=== PATIENT | female | born 1965 | race Caucasian/White ===

== ENCOUNTER 2016-11-22 16:48 | Emergency (ER) | payer OTHER ==
--- NOTE | 2016-11-22 18:11 | ED NURSING NOTES ---
Clinical Report - Nurses [facility] [place] [address] 11/22/2016 16:50 Patient: MCKENZIE TEMPLE TRIAGE Triage time 16:52. Acuity: LEVEL 3. Chief Complaint: FALL OFF A HORSE. Alert. --16:58 Chantel Perez R.N. 16:52 11/22/16. BP: 134/74. HR: 121. RR: 30. O2 saturation: 100%. Temp: 97.7 F. Pain level now 08/04. --16:58 Chantel Perez R.N. Weight: 94.8 kg stated. Height/Length: 64 inches Per Patient. BMI: 35.9. --16:52 Chantel Perez R.N. Medications MetFORMIN HCl Oral. --16:57 Chantel Perez R.N. Glipizide Oral. --16:57 Chantel Perez R.N. Invocana. --16:57 Chantel Perez R.N. Allergies Codeine. --16:57 Chantel Perez R.N. Oxycodone. --16:57 Chantel Perez R.N. History Arrived by private vehicle. Historian: patient. Location of injuries: right wrist. This occurred just prior to arrival. ( right wrist with deformity). No loss of consciousness. 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 Trauma activation: Modified Trauma Activation. Pre-hospital notification of patient arrival was not received. PAST MEDICAL HX: Diabetes mellitus. Tetanus status: up-to-date. SOCIAL HX: Smoker- current status unknown (electronic cigarrettes). No alcohol use or drug use. --16:58 Chantel Perez R.N. ( bilat knee scrapes). --16:59 Chantel Perez R.N. PROBLEMS: Contusion. Last Tetanus. --16:58 Chantel Perez R.N. ADDITIONAL SURGERIES: Cholecystectomy. Tonsillectomy. --16:58 Chantel Perez R.N. PHYSICAL ASSESSMENT GENERAL / NEURO / PSYCH: Alert. Oriented X 4. Appears anxious and in distress. RESPIRATORY: Respiratory distress (hyperventillating). SKIN: Skin is warm. --16:59 Chantel Perez R.N. NURSING PROGRESS NOTES Call light placed in reach. --16:59 Chantel Perez R.N. 17:12 11/22/2016 Dilaudid (HYDROmorphone HCl PF) IM 2 mg given. Given in the left anterior lateral thigh. Allergies verified, confirmed 5 rights and sedative warning given to the patient and patient's coal dumping equipment operator. --17:12 Ramsey Temple R.N. 17:12 11/22/2016 Phenergan (Promethazine HCl) IM 25 mg given. Given in the right anterior lateral thigh. Allergies verified, confirmed 5 rights and sedative warning given to the patient and patient's coal dumping equipment operator. --17:12 Ramsey Temple R.N. 17:12. Patient transported to radiology. --17:17 Ramsey Temple R.N. Point of care testing: performed by tech. Glucose: 150. [facility] DISPOSITION / DISCHARGE 18:29 11/22/16. Departure time: 1825. ( MD aware of discharge vitals). No learning barriers present. Discharge instructions provided and reviewed with the patient and family. Reviewed medication(s) side effects, precautions, dosing and course information. Prescription(s) given to the patient. Patient verbalized understanding. Written instructions provided in Luxembourgish. The patient was discharged by the physician. She was discharged home and accompanied by coal dumping equipment operator. She left the Emergency Department ambulatory and via private vehicle. [employer] driving. --18:29 Ramsey Temple R.N. 18:29 11/22/16. BP: 130/66. HR: 110. RR: 14. O2 saturation: 95%. Temp: 98.1 F. Pain level now 10. --18:29 Ramsey Temple R.N. Locked/Released at 11/22/2016 18:58 by Ramsey Temple R.N.
--- NOTE | 2016-11-22 18:11 | ED CLINICAL REPORT ---
Clinical Report - Physicians/Mid Levels [facility] [address] [place] [address] 11/22/2016 16:50 Patient: MCKENZIE SANCHEZ Time Seen: 16:52. Arrived- By private vehicle. Historian- patient. HISTORY OF PRESENT ILLNESS Chief Complaint: FALL and INJURY TO RIGHT UPPER EXTREMITY. Location of injuries- right shoulder, right arm, right elbow, right forearm and right wrist. The injury occurred just prior to arrival. Fell. Occurred at home. The patient complains of moderate pain. No blow to the head, neck pain, loss of consciousness or seizure. Not dazed. REVIEW OF SYSTEMS No dizziness, hearing loss, chest pain, difficulty breathing or weakness. No headache, nausea, abdominal pain, laceration or fever. No vomiting or urinary problems. She has no pain on weight bearing. All systems otherwise negative, except as recorded above. PAST HISTORY Type II diabetes mellitus treated with oral med. Prior fall from horse with hip contusion (seen at [facility]). Medications: Invocana. Glipizide Oral. MetFORMIN HCl Oral. Allergies: Codeine. Oxycodone. SOCIAL HISTORY Smoker- current status unknown. No alcohol use or drug use. ADDITIONAL NOTES The nursing notes have been reviewed. PHYSICAL EXAM Vital Signs: 11/22/2016 16:52 BP: 134/74. HR: 121. RR: 30. O2 saturation: 100%. Temp: 97.7 F. Appearance: Alert. Oriented X3. Anxious. Patient in moderate distress. Head: Head non-tender. No swelling of head. No Haider's sign or raccoon eyes. Eyes: Pupils equal, round and reactive to light. EOM intact. ENT: No dental injury. Pharynx normal. Neck: No pain with movement of head/neck. Painless ROM. Non-tender. Non-tender. No vertebral tenderness. CVS: Tachycardia. Heart sounds normal. Pulses normal. Respiratory: Breath sounds normal. Chest nontender. Abdomen: No visible injury. Soft and nontender. No mass. Back: No tenderness. ROM normal. No vertebral point tenderness. Skin: Skin intact. Skin warm and dry. Normal skin color. Normal skin turgor. Extremities: Right shoulder: mild tenderness located in the anterior, posterior and medial aspect of the shoulder, AC joint and distal clavicle. Limited ROM due to pain. Neurovascular intact distally. No erythema, swelling, laceration, abrasion or ecchymosis. No puncture wound, foreign body or deformity. Right elbow: moderate tenderness. Limited ROM secondary to pain. Neurovascular intact distally. No erythema, swelling, abrasion, ecchymosis or puncture wound. No deformity. Right wrist: moderate tenderness and swelling located in the dorsal, volar and radial aspect of the wrist. Limited ROM secondary to pain. Neurovascular intact distally. Right hand: moderate tenderness and mild swelling localized to the proximal, dorsal and palmar aspect of the hand. Neurovascular intact distally. No abrasion, ecchymosis, foreign body or deformity. Pelvis stable. Left knee: mild tenderness. Neurovascular intact distally. No erythema, swelling, laceration or ecchymosis. No limitation in ROM. Neuro: Marissa Coma Scale: 15- eyes open spontaneously (4); best verbal response- oriented x 3 (5); best motor response- obeys commands (6). Oriented X 3. No motor deficit. No sensory deficit. LABS, X-RAYS, AND EKG Rt Shoulder X-ray: No fracture. Normal alignment. Technique: good. The X-rays were interpreted contemporaneously by me. Rt Elbow X-ray: No fracture. Normal alignment. Soft tissues normal. No air in the soft tissue or foreign body. Anterior fat pad visible. Posterior fat pad not visualized. Views: AP, lateral and oblique. Technique: good. The X-rays were interpreted contemporaneously by me. Rt Hand X-ray: Fracture of the distal radius. No open, comminuted, intraarticular or displaced right radius fracture. Views: AP, lateral and oblique. Technique: good. The X-rays were interpreted contemporaneously by me. Pulse Oximetry: 11/22/2016 16:52 O2 saturation: 100%. (FIO2 - room air). Interpretation: normal. PROGRESS AND PROCEDURES Splint Application: Fiberglass short arm splint and sugar tong splint applied to right wrist and forearm. Splint applied by tech with direct supervision by the ED physician. Reassessed extremity following splint application. Neurovascular intact. Course of Care: Dilaudid 2 mg with Phenergan 25 mg IM given. Pt given pain meds prior to x-ray. No neck or back pain or tenderness. No chest or abdominal pain or tenderness Patient is stable. Physical exam findings are improved. Symptoms much better. Patient/family counseled. Old ED records reviewed. Disposition: Discharged. Condition: stable and improved. CLINICAL IMPRESSION Contusion to the right shoulder and right elbow. Closed nondisplaced transverse fracture of the distal right radius Fall in sports (from horse). INSTRUCTIONS Apply ice. Wear sling. Elevate affected areas above chest level. Wear fiberglass splint until released. Warnings: SEDATIVE MEDICATION: You were given sedative medication during your visit. Do not drive or operate dangerous machinery. CONTROLLED SUBSTANCE WARNINGS. GENERAL WARNINGS: Return or contact your physician immediately if your condition worsens or changes unexpectedly, if not improving as expected, or if other problems arise. Your Current Medications: CONTINUE TAKING THE FOLLOWING MEDICATIONS: Glipizide Oral. Invocana*. MetFORMIN HCl Oral. Prescription Medications: Zofran (orally disintegrating tablets) 4 mg: take 1-2 orally every 8 hours as needed for nausea and vomiting. Dispense ten (10). No refill. Substitution is permissible. Tramadol 50 mg tablets: take 1-2 orally every 6 hours as needed for pain. Dispense twenty (20). No refills. OTC Medications: Acetaminophen (available over the counter): take according to label instructions. Motrin (available over the counter): take according to label instructions. Follow-up: Follow up with your doctor in about three days. Follow up with an orthopedic surgeon- as recommended by your primary care physician- in about three days. (Electronically signed by Danny Fried DO 11/22/2016 22:46) Addenda for LAURA MCKENZIE Bradford VisitID: [id number] Date: 11/22/2016 11/22/2016 19:03 I personally performed the splint and put pt on a sling. (Electronically signed by Vickie López - 11/22/2016 19:03)
--- NOTE | 2016-11-22 18:11 | ED NURSING NOTES ---
Clinical Report - Nurses [facility] [place] [address] 11/22/2016 16:50 Patient: MCKENZIE TEMPLE TRIAGE Triage time 16:52. Acuity: LEVEL 3. Chief Complaint: FALL OFF A HORSE. Alert. --16:58 Chantel Perez R.N. 16:52 11/22/16. BP: 134/74. HR: 121. RR: 30. O2 saturation: 100%. Temp: 97.7 F. Pain level now 08/04. --16:58 Chantel Perez R.N. Weight: 94.8 kg stated. Height/Length: 64 inches Per Patient. BMI: 35.9. --16:52 Chantel Perez R.N. Medications MetFORMIN HCl Oral. --16:57 Chantel Perez R.N. Glipizide Oral. --16:57 Chantel Perez R.N. Invocana. --16:57 Chantel Perez R.N. Allergies Codeine. --16:57 Chantel Perez R.N. Oxycodone. --16:57 Chantel Perez R.N. History Arrived by private vehicle. Historian: patient. Location of injuries: right wrist. This occurred just prior to arrival. ( right wrist with deformity). No loss of consciousness. 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 Trauma activation: Modified Trauma Activation. Pre-hospital notification of patient arrival was not received. PAST MEDICAL HX: Diabetes mellitus. Tetanus status: up-to-date. SOCIAL HX: Smoker- current status unknown (electronic cigarrettes). No alcohol use or drug use. --16:58 Chantel Perez R.N. ( bilat knee scrapes). --16:59 Chantel Perez R.N. PROBLEMS: Contusion. Last Tetanus. --16:58 Chantel Perez R.N. ADDITIONAL SURGERIES: Cholecystectomy. Tonsillectomy. --16:58 Chantel Perez R.N. PHYSICAL ASSESSMENT GENERAL / NEURO / PSYCH: Alert. Oriented X 4. Appears anxious and in distress. RESPIRATORY: Respiratory distress (hyperventillating). SKIN: Skin is warm. --16:59 Chantel Perez R.N. NURSING PROGRESS NOTES Call light placed in reach. --16:59 Chantel Perez R.N. 17:12 11/22/2016 Dilaudid (HYDROmorphone HCl PF) IM 2 mg given. Given in the left anterior lateral thigh. Allergies verified, confirmed 5 rights and sedative warning given to the patient and patient's business services sales agent. --17:12 Ramsey Temple R.N. 17:12 11/22/2016 Phenergan (Promethazine HCl) IM 25 mg given. Given in the right anterior lateral thigh. Allergies verified, confirmed 5 rights and sedative warning given to the patient and patient's business services sales agent. --17:12 Ramsey Temple R.N. 17:12. Patient transported to radiology. --17:17 Ramsey Temple R.N. Point of care testing: performed by tech. Glucose: 150. --17:[facility] DISPOSITION / DISCHARGE 18:29 11/22/16. Departure time: 1825. ( MD aware of discharge vitals). No learning barriers present. Discharge instructions provided and reviewed with the patient and family. Reviewed medication(s) side effects, precautions, dosing and course information. Prescription(s) given to the patient. Patient verbalized understanding. Written instructions provided in German. The patient was discharged by the physician. She was discharged home and accompanied by business services sales agent. She left the Emergency Department ambulatory and via private vehicle. [employer] driving. --18:29 Ramsey Temple R.N. 18:29 11/22/16. BP: 130/66. HR: 110. RR: 14. O2 saturation: 95%. Temp: 98.1 F. Pain level now 10. --18:29 Ramsey Temple R.N. Locked/Released at 11/22/2016 18:58 by Ramsey Temple R.N.
--- NOTE | 2016-11-22 18:11 | ED ORDER SUMMARY ---
..... Patient: MCKENZIE TEMPLE OrderSheet [facility] VisitID: [id number] [address] [place] [address] 51y, F Registration Date/Time: 11/22/2016 ORDER SHEET Weight: 94.8 kg (stated) Allergies: Codeine, Oxycodone GENERAL ORDERS: Wrist 3 or 4V Right Urgent (16:53 11/22/2016 PHutchinson DO) (Ack 16:55 LTapper) (16:57 PHutchinson DO) (Cancelled: Other16:57 utchinson DO) Elbow 3 or 4V Right Urgent (16:56 11/22/2016 PHutchinson DO) (Ack 17:07 LTapper) (17:17 KWilliams R.N.) Shoulder 2V or more Right Urgent (16:56 11/22/2016 PHutchinson DO) (Ack 17:07 LTapper) (17:17 KWilliams R.N.) Hand 3 or 4V Right Urgent (16:57 11/22/2016 PHutchinson DO) (Ack 17:07 LTapper) (17:17 KWilliams R.N.) Splint (UE) (Right) (Sugar Tong) (Short Arm) (17:50 11/22/2016 PHnvchinson DO) (18:26 KWilliams R.N.) Sling - arm (17:50 11/22/2016 PHnvchinson DO) (18:26 KWilliams R.N.) MEDICATION ORDERS: Dilaudid IM 2 mg (HIGH ALERT MEDICATION, NOW) (17:04 11/22/2016 PHutchinson DO) (17:12 KWilliams R.N.) Phenergan IM 25 mg (HIGH ALERT MEDICATION, NOW) (17:05 11/22/2016 PHnvchinson DO) (17:12 KWilliams R.N.) IV FLUIDS: ORDER SHEET NOTES: [Electronically signed by Ramsey Temple R.N. (18:58 11/22/2016)] [Electronically signed by Danny Fried DO (22:46 11/22/2016)] [Electronically locked/signed by Ramsey Temple R.N. (18:58 11/22/2016)Clarissa
--- NOTE | 2016-11-22 18:11 | ED ORDER SUMMARY ---
..... Patient: MCKENZIE TEMPLE OrderSheet [facility] VisitID: [id number] [address] [place] [address] 51y, F Registration Date/Time: 11/22/2016 ORDER SHEET Weight: 94.8 kg (stated) Allergies: Codeine, Oxycodone GENERAL ORDERS: Wrist 3 or 4V Right Urgent (16:53 11/22/2016 PHutchinson DO) (Ack 16:55 LTapper) (16:57 PHutchinson DO) (Cancelled: Other16:57 utchinson DO) Elbow 3 or 4V Right Urgent (16:56 11/22/2016 PHutchinson DO) (Ack 17:07 LTapper) (17:17 KWilliams R.N.) Shoulder 2V or more Right Urgent (16:56 11/22/2016 PHutchinson DO) (Ack 17:07 LTapper) (17:17 KWilliams R.N.) Hand 3 or 4V Right Urgent (16:57 11/22/2016 PHutchinson DO) (Ack 17:07 LTapper) (17:17 KWilliams R.N.) Splint (UE) (Right) (Sugar Tong) (Short Arm) (17:50 11/22/2016 PHnychinson DO) (18:26 KWilliams R.N.) Sling - arm (17:50 11/22/2016 PHnychinson DO) (18:26 KWilliams R.N.) MEDICATION ORDERS: Dilaudid IM 2 mg (HIGH ALERT MEDICATION, NOW) (17:04 11/22/2016 PHutchinson DO) (17:12 KWilliams R.N.) Phenergan IM 25 mg (HIGH ALERT MEDICATION, NOW) (17:05 11/22/2016 PHnychinson DO) (17:12 KWilliams R.N.) IV FLUIDS: ORDER SHEET NOTES: [Electronically signed by Ramsey Temple R.N. (18:58 11/22/2016)] [Electronically signed by Danny Fried DO (22:46 11/22/2016)] [Electronically locked/signed by Ramsey Temple R.N. (18:58 11/22/2016)Clarissa
--- NOTE | 2016-11-22 19:37 | DIAGNOSTIC IMAGING REPORT ---
PROCEDURE: XR SHOULDER 2 OR MORE VW-RIGHT INDICATION: Fell from horse, initial encounter TECHNIQUE: Three views. COMPARISON: None. FINDINGS: Osseous structures, joint spaces and soft tissues are normal. IMPRESSION: 1. Normal right shoulder.
--- NOTE | 2016-11-22 19:38 | DIAGNOSTIC IMAGING REPORT ---
PROCEDURE: XR ELBOW 3 OR 4 VIEWS - RIGHT INDICATION: Fell from horse, initial encounter TECHNIQUE: Four views. COMPARISON: None. FINDINGS: Osseous structures, joint spaces, and soft tissues are normal. No evidence of an effusion. IMPRESSION: 1. Normal right elbow.
--- NOTE | 2016-11-22 19:40 | DIAGNOSTIC IMAGING REPORT ---
PROCEDURE: XR HAND 3 OR 4 VIEWS - RIGHT INDICATION: Fell from horse, initial encounter TECHNIQUE: Four views. COMPARISON: None. FINDINGS: Minimally impacted distal radius fracture with minimal displacement. No other osseous abnormalities. Normal joint spaces and soft tissues. IMPRESSION: 1. Nondisplaced impacted distal radius fracture.
--- NOTE | 2016-11-22 22:46 | ED MED RECONCILIATION SUMMARY ---
Patient: MCKENZIE SANCHEZ Medication Reconciliation Report [facility] VisitID: [id number] [address] [place] [address] 51y, F Registration Date/Time: 11/22/2016 Weight: 94.8 kg Height/Length: 64 in. BMI: 35.9 ALLERGIES: Codeine, Oxycodone The patient's Home Medications are listed below: CONTINUE TAKING THE FOLLOWING MEDICATIONS: Glipizide Oral Invocana MetFORMIN HCl Oral The source(s) of the original Home Medication information: Not obtained. The following Medications were given to the patient in the Emergency Department: Dilaudid [IM] IM 2 mg, administered: 11/22/2016 5:12:00 PM Phenergan [IM] IM 25 mg, administered: 11/22/2016 5:12:00 PM The following Medications were prescribed to the patient: Acetaminophen (available over the counter): take according to label instructions. -- Danny Fried DO Motrin (available over the counter): take according to label instructions. -- Danny Fried DO Zofran (orally disintegrating tablets) 4 mg: take 1-2 orally every 8 hours as needed for nausea and vomiting. Dispense ten (10). No refill. Substitution is permissible. -- Danny Fried DO Tramadol 50 mg tablets: take 1-2 orally every 6 hours as needed for pain. Dispense twenty (20). No refills. -- Danny Fried DO
--- NOTE | 2016-11-22 22:46 | ED MAR SUMMARY ---
..... Medication Administration Record [facility] [address] [place] [address] Patient: MCKENZIE TEMPLE Visit ID: [id number] 51y, F Weight: 94.8 kg Height/Length: 64 in BMI: 35.9 ALLERGIES: Oxycodone, Codeine Given 17:12 11/22/2016 Ramsey Temple R.N. Medication Administered: DILAUDID [IM] (HYDROMORPHONE HCL PF), Dose: 2 mg IM. Medication Ordered: Dilaudid IM 2 mg (HIGH ALERT MEDICATION, NOW). Given 17:12 11/22/2016 Ramsey Temple RCisco Medication Administered: PHENERGAN [IM] (PROMETHAZINE HCL), Dose: 25 mg IM. Medication Ordered: Phenergan IM 25 mg (HIGH ALERT MEDICATION, NOW).
--- NOTE | 2016-11-22 22:46 | ED MED RECONCILIATION SUMMARY ---
Patient: MCKENZIE SANCHEZ Medication Reconciliation Report [facility] VisitID: [id number] [address] [place] [address] 51y, F Registration Date/Time: 11/22/2016 Weight: 94.8 kg Height/Length: 64 in. BMI: 35.9 ALLERGIES: Codeine, Oxycodone The patient's Home Medications are listed below: CONTINUE TAKING THE FOLLOWING MEDICATIONS: Glipizide Oral Invocana MetFORMIN HCl Oral The source(s) of the original Home Medication information: Not obtained. The following Medications were given to the patient in the Emergency Department: Dilaudid [IM] IM 2 mg, administered: 11/22/2016 5:12:00 PM Phenergan [IM] IM 25 mg, administered: 11/22/2016 5:12:00 PM The following Medications were prescribed to the patient: Acetaminophen (available over the counter): take according to label instructions. -- Danny Fried DO Motrin (available over the counter): take according to label instructions. -- Danny Fried DO Zofran (orally disintegrating tablets) 4 mg: take 1-2 orally every 8 hours as needed for nausea and vomiting. Dispense ten (10). No refill. Substitution is permissible. -- Danny Fried DO Tramadol 50 mg tablets: take 1-2 orally every 6 hours as needed for pain. Dispense twenty (20). No refills. -- Danny Fried DO
--- NOTE | 2016-11-22 22:46 | ED DISCHARGE INSTRUCTIONS ---
Patient: MCKENZIE SANCHEZ General Instructions [facility] VisitID: [id number] [address] [place] [address] 51y, F Registration Date/Time: 11/22/2016 Contusion to the right shoulder and right elbow. Closed nondisplaced transverse fracture of the distal right radius Fall in sports (from horse). INSTRUCTIONS Apply ice. Wear sling. Elevate affected areas above chest level. Wear fiberglass splint until released. Warnings: SEDATIVE MEDICATION: You were given sedative medication during your visit. Do not drive or operate dangerous machinery. CONTROLLED SUBSTANCE WARNINGS. GENERAL WARNINGS: Return or contact your physician immediately if your condition worsens or changes unexpectedly, if not improving as expected, or if other problems arise. Your Current Medications: CONTINUE TAKING THE FOLLOWING MEDICATIONS: Glipizide Oral. Invocana*. MetFORMIN HCl Oral. Prescription Medications: Zofran (orally disintegrating tablets) 4 mg: take 1-2 orally every 8 hours as needed for nausea and vomiting. Dispense ten (10). No refill. Substitution is permissible. Tramadol 50 mg tablets: take 1-2 orally every 6 hours as needed for pain. Dispense twenty (20). No refills. OTC Medications: Acetaminophen (available over the counter): take according to label instructions. Motrin (available over the counter): take according to label instructions. Follow-up: Follow up with your doctor in about three days. Follow up with an orthopedic surgeon- as recommended by your primary care physician- in about three days. ADDITIONAL INFORMATION Mechanical Fall You have had a fall today. It appears that the cause is mechanical. That means that you slipped, tripped or lost your balance. If your fall had been due to fainting or a seizure, further tests would be required. Home Care: Rest today and resume your normal activities when you are feeling back to normal. If you were injured during the fall, follow the advice from your doctor regarding care of your injury. You may use acetaminophen (Tylenol) or ibuprofen (Motrin, Advil) to control pain, unless another pain medicine was prescribed. [NOTE: If you have chronic liver or kidney disease or ever had a stomach ulcer or GI bleeding, talk with your doctor before using these medicines.] Fall Prevention: Was there anything that caused your fall that can be fixed, removed, or replaced? Make your home safe by keeping walkways clear of objects you may trip over. Use non-slip pads under rugs. Do not walk in poorly lit areas. Do not stand on chairs or wobbly ladders. Use caution when reaching overhead or looking upward. This position can cause a loss of balance. Be sure your shoes fit properly, have non-slip bottoms and are in good condition. Be cautious when going up and down curbs, and walking on uneven sidewalks. If your balance is poor, consider using a cane or walker. Stay as active as you can. Balance, flexibility, strength, and endurance all come from exercise. They all play a role in preventing falls. Follow Up with your doctor or as advised by our staff. Get Prompt Medical Attention if any of the following occur: Repeated mechanical falls, or unexplained falls Dizziness, fainting or seizure Severe headache Chest pain or shortness of breath Palpitations (very rapid or very slow or irregular heartbeat) Blood in vomit, stools (black or red color) Weakness of an arm or leg or one side of the face Difficulty with speech or vision Contusion:Upper Extremity You have a contusion of your upper extremity (arm, wrist, hand or fingers). This causes local pain, swelling and sometimes bruising. There are no broken bones. This injury takes a few days to a few weeks to heal. A sling may be provided for comfort and arm support. Home Care: 1) Keep your arm elevated to reduce pain and swelling. This is very important during the first 48 hours. 2) Apply an ice pack (ice cubes in a plastic bag, wrapped in a towel) over the injured area for 20 minutes every 1-2 hours the first day for pain relief. Continue this 3-4 times a day until the pain and swelling goes away. 3) You may use acetaminophen (Tylenol) or ibuprofen (Motrin, Advil) to control pain, unless another pain medicine was prescribed. [ NOTE : If you have chronic liver or kidney disease or ever had a stomach ulcer or GI bleeding, talk with your doctor before using these medicines.] 4) If a sling was provided, you may remove it to shower or bathe. Do not wear it for more than one week or it may cause joint stiffness. Follow Up with your doctor or this facility if you are not starting to improve within the next THREE days. [NOTE: If X-rays were taken, they will be reviewed by a radiologist. You will be notified of any new findings that may affect your care.] Get Prompt Medical Attention if any of the following occur: -- Pain or swelling increases -- Redness, warmth or drainage -- Hand or fingers becomes cold, blue, numb or tingly Fracture: Wrist (General) You have a fracture (break) of a bone in your wrist. This may be a small crack or chip in the bone; or a major break with the broken parts pushed out of position. Wrist fractures are treated with a splint or cast. They take about 4-6 weeks to heal. Severe injuries may require surgery. Home Care: Keep your arm elevated to reduce pain and swelling. When sitting or lying down elevate your arm above the level of your heart. You can do this by placing your arm on a pillow that rests on your chest or on a pillow at your side. This is most important during the first 48 hours after injury. Apply an ice pack (ice cubes in a plastic bag, wrapped in a towel) over the injured area for 20 minutes every 1-2 hours the first day. You can place the ice pack inside the sling and directly over the splint/cast. Continue with ice packs 3-4 times a day for the next two days, then as needed for the relief of pain and swelling. Keep the cast/splint completely dry at all times. Bathe with your cast/splint out of the water, protected with a large plastic bag, rubber-banded at the top end. If a fiberglass splint/cast gets wet, you can dry it with a hair-dryer. You may use acetaminophen (Tylenol) or ibuprofen (Motrin, Advil) to control pain, unless another pain medicine was prescribed. [NOTE: If you have chronic liver or kidney disease or ever had a stomach ulcer or GI bleeding, talk with your doctor before using these medicines.] Follow Up with your doctor in one week, or as advised by our staff, to be sure the bone is healing properly. If a splint was applied, it will be changed to a cast during your follow-up visit. [NOTE: Any X-rays taken will be reviewed by a radiologist. You will be notified if there are any new findings that may affect your care.] Get Prompt Medical Attention if any of the following occur: The plaster cast or splint becomes wet or soft The fiberglass cast or splint remains wet for more than 24 hours Increased tightness or pain under the cast or splint Fingers become swollen, cold, blue, numb or tingly Splint Care, Fiberglass The following will help you care for your splint: It will take up totwo hours for your fiber glass splint to fully harden; therefore, do notapply any pressure on it during that time or else it may break. To prevent swelling under the splint, for thefirst 48 hours: If the splint is on yourarm, keep it in a sling or raised to shoulder level when sitting or standing; rest it on your chest or on a pillow at your side when lying down. If the splint is on yourfoot, keep it propped up above the level of your waist when sitting or lying. Avoid crutch walking as much as possible during this time. Keep the splint/cast dry at all times. Bathe with your splint/cast well out of the water, protected with a large plastic bag, rubber-banded at the top end. If a fiberglass cast or splint gets wet, you can dry it with a hair-dryer. Follow-up care Follow up with your doctor or this facility as advised. When to seek medical care Get prompt medical attention if any of the following occur: Bad odor from the splint or wound-fluid stains the splint The splint cracks or remains wet over 24 hours Increasing tightness or pressure under the splint Fingers or toes become swollen, cold, blue, numb or tingly Increased pain under the splint Ondansetron Oral disintegrating tablet What is this medicine? ONDANSETRON (on MARK se josué) is used to treat nausea and vomiting caused by chemotherapy. It is also used to prevent or treat nausea and vomiting after surgery. How should I use this medicine? These tablets are made to dissolve in the mouth. Do not try to push the tablet through the foil backing. With dry hands, peel away the foil backing and gently remove the tablet. Place the tablet in the mouth and allow it to dissolve, then swallow. While you may take these tablets with water, it is not necessary to do so. Talk to your chief airline radio operator regarding the use of this medicine in children. Special care may be needed. What side effects may I notice from receiving this medicine? Side effects that you should report to your doctor or health client care representative as soon as possible: allergic reactions like skin rash, itching or hives, swelling of the face, lips, or tongue breathing problems dizziness fast or irregular heartbeat feeling faint or lightheaded, falls fever and chills swelling of the hands and feet tightness in the chest Side effects that usually do not require medical attention (report to your doctor or health client care representative if they continue or are bothersome): constipation or diarrhea headache What may interact with this medicine? Do not take this medicine with any of the following medications: -apomorphine -cisapride -dofetilide -dronedarone -pimozide -thioridazine -ziprasidone This medicine may also interact with the following medications: -carbamazepine -phenytoin -rifampicin -tramadol -other medicines that prolong the QT interval (cause an abnormal heart rhythm) What if I miss a dose? If you miss a dose, take it as soon as you can. If it is almost time for your next dose, take only that dose. Do not take double or extra doses. Where should I keep my medicine? Keep out of the reach of children. Store between 2 and 30 degrees C (36 and 86 degrees F). Throw away any unused medicine after the expiration date. What should I tell my health care provider before I take this medicine? They need to know if you have any of these conditions: heart disease history of irregular heartbeat liver disease low levels of magnesium or potassium in the blood an unusual or allergic reaction to ondansetron, granisetron, other medicines, foods, dyes, or preservatives or trying to get breast-feeding What should I watch for while using this medicine? Check with your doctor or health client care representative as soon as you can if you have any sign of an allergic reaction. Tramadol Hydrochloride Oral tablet What is this medicine? TRAMADOL (TRA ma dole) is a pain reliever. It is used to treat moderate to severe pain in adults. How should I use this medicine? Take this medicine by mouth with a full glass of water. Follow the directions on the prescription label. If the medicine upsets your stomach, take it with food or milk. Do not take more medicine than you are told to take. Talk to your chief airline radio operator regarding the use of this medicine in children. Special care may be needed. What side effects may I notice from receiving this medicine? Side effects that you should report to your doctor or health client care representative as soon as possible: allergic reactions like skin rash, itching or hives, swelling of the face, lips, or tongue breathing difficulties, wheezing confusion itching light headedness or fainting spells redness, blistering, peeling or loosening of the skin, including inside the mouth seizures Side effects that usually do not require medical attention (report to your doctor or health client care representative if they continue or are bothersome): constipation dizziness drowsiness headache nausea, vomiting What may interact with this medicine? Do not take this medicine with any of the following medications: MAOIs like Carbex, Eldepryl, Marplan, Nardil, and Parnate This medicine may also interact with the following medications: alcohol or medicines that contain alcohol antihistamines benzodiazepines bupropion carbamazepine or oxcarbazepine clozapine cyclobenzaprine digoxin furazolidone linezolid medicines for depression, anxiety, or psychotic disturbances medicines for migraine headache like almotriptan, eletriptan, frovatriptan, naratriptan, rizatriptan, sumatriptan, zolmitriptan medicines for pain like pentazocine, buprenorphine, butorphanol, meperidine, nalbuphine, and propoxyphene medicines for sleep muscle relaxants naltrexone phenobarbital phenothiazines like perphenazine, thioridazine, chlorpromazine, mesoridazine, fluphenazine, prochlorperazine, promazine, and trifluoperazine procarbazine warfarin What if I miss a dose? If you miss a dose, take it as soon as you can. If it is almost time for your next dose, take only that dose. Do not take double or extra doses. Where should I keep my medicine? Keep out of the reach of children. Store at room temperature between 15 and 30 degrees C (59 and 86 degrees F). Keep container tightly closed. Throw away any unused medicine after the expiration date. What should I tell my health care provider before I take this medicine? They need to know if you have any of these conditions: brain tumor depression drug abuse or addiction head injury if you frequently drink alcohol containing drinks kidney disease or trouble passing urine liver disease lung disease, asthma, or breathing problems seizures or epilepsy suicidal thoughts, plans, or attempt; a previous suicide attempt by you or a family member an unusual or allergic reaction to tramadol, codeine, other medicines, foods, dyes, or preservatives or trying to get breast-feeding What should I watch for while using this medicine? Tell your doctor or health client care representative if your pain does not go away, if it gets worse, or if you have new or a different type of pain. You may develop tolerance to the medicine. Tolerance means that you will need a higher dose of the medicine for pain relief. Tolerance is normal and is expected if you take this medicine for a long time. Do not suddenly stop taking your medicine because you may develop a severe reaction. Your body becomes used to the medicine. This does NOT mean you are addicted. Addiction is a behavior related to getting and using a drug for a non-medical reason. If you have pain, you have a medical reason to take pain medicine. Your doctor will tell you how much medicine to take. If your doctor wants you to stop the medicine, the dose will be slowly lowered over time to avoid any side effects. You may get drowsy or dizzy. Do not drive, use machinery, or do anything that needs mental alertness until you know how this medicine affects you. Do not stand or sit up quickly, especially if you are an older patient. This reduces the risk of dizzy or fainting spells. Alcohol can increase or decrease the effects of this medicine. Avoid alcoholic drinks. You may have constipation. Try to have a bowel movement at least every 2 to 3 days. If you do not have a bowel movement for 3 days, call your doctor or health client care representative. Your mouth may get dry. Chewing sugarless gum or sucking hard candy, and drinking plenty of water may help. Contact your doctor if the problem does not go away or is severe. Acetaminophen Oral tablet What is this medicine? ACETAMINOPHEN (a set a BARON josie fen) is a pain reliever. It is used to treat mild pain and fever. How should I use this medicine? Take this medicine by mouth with a glass of water. Follow the directions on the package or prescription label. Take your medicine at regular intervals. Do not take your medicine more often than directed. Talk to your chief airline radio operator regarding the use of this medicine in children. While this drug may be prescribed for children as young as 6 years of age for selected conditions, precautions do apply. What side effects may I notice from receiving this medicine? Side effects that you should report to your doctor or health client care representative as soon as possible: allergic reactions like skin rash, itching or hives, swelling of the face, lips, or tongue breathing problems fever or sore throat redness, blistering, peeling or loosening of the skin, including inside the mouth trouble passing urine or change in the amount of urine unusual bleeding or bruising unusually weak or tired yellowing of the eyes or skin Side effects that usually do not require medical attention (report to your doctor or health client care representative if they continue or are bothersome): headache nausea, stomach upset What may interact with this medicine? alcohol imatinib isoniazid other medicines with acetaminophen What if I miss a dose? If you miss a dose, take it as soon as you can. If it is almost time for your next dose, take only that dose. Do not take double or extra doses. Where should I keep my medicine? Keep out of reach of children. Store at room temperature between 20 and 25 degrees C (68 and 77 degrees F). Protect from moisture and heat. Throw away any unused medicine after the expiration date. What should I tell my health care provider before I take this medicine? They need to know if you have any of these conditions: if you frequently drink alcohol containing drinks liver disease an unusual or allergic reaction to acetaminophen, other medicines, foods, dyes or preservatives or trying to get breast-feeding What should I watch for while using this medicine? Tell your doctor or health client care representative if the pain lasts more than 10 days (5 days for children), if it gets worse, or if there is a new or different kind of pain. Also, check with your doctor if a fever lasts for more than 3 days. Do not take other medicines that contain acetaminophen with this medicine. Always read labels carefully. If you have questions, ask your doctor or pharmacist. If you take too much acetaminophen get medical help right away. Too much acetaminophen can be very dangerous and cause liver damage. Even if you do not have symptoms, it is important to get help right away. Ibuprofen Oral tablet What is this medicine? IBUPROFEN (eye BYOO proe fen) is a non-steroidal anti-inflammatory drug (NSAID). It is used for dental pain, fever, headaches or migraines, osteoarthritis, rheumatoid arthritis, or painful monthly periods. It can also relieve minor aches and pains caused by a cold, flu, or sore throat. How should I use this medicine? Take this medicine by mouth with a glass of water. Follow the directions on the prescription label. Take this medicine with food if your stomach gets upset. Try to not lie down for at least 10 minutes after you take the medicine. Take your medicine at regular intervals. Do not take your medicine more often than directed. A special MedGuide will be given to you by the pharmacist with each prescription and refill. Be sure to read this information carefully each time. Talk to your chief airline radio operator regarding the use of this medicine in children. Special care may be needed. What side effects may I notice from receiving this medicine? Side effects that you should report to your doctor or health client care representative as soon as possible: allergic reactions like skin rash, itching or hives, swelling of the face, lips, or tongue black or bloody stools, blood in the urine or in vomit breathing problems changes in vision chest pain general ill feeling or flu-like symptoms nausea or vomiting redness, blistering, peeling or loosening of the skin, including inside the mouth slurred speech or weakness on one side of the body stomach pain unexplained weight gain or swelling unusually weak or tired yellowing of eyes or skin Side effects that usually do not require medical attention (report to your doctor or health client care representative if they continue or are bothersome): constipation or diarrhea dizziness gas or heartburn stomach upset What may interact with this medicine? Do not take this medicine with any of the following medications: cidofovir ketorolac methotrexate pemetrexed This medicine may also interact with the following medications: alcohol aspirin diuretics lithium other drugs for inflammation like prednisone warfarin What if I miss a dose? If you miss a dose, take it as soon as you can. If it is almost time for your next dose, take only that dose. Do not take double or extra doses. Where should I keep my medicine? Keep out of the reach of children. Store at room temperature between 15 and 30 degrees C (59 and 86 degrees F). Keep container tightly closed. Throw away any unused medicine after the expiration date. What should I tell my health care provider before I take this medicine? They need to know if you have any of these conditions: asthma cigarette smoker drink more than 3 alcohol containing drinks a day heart disease or circulation problems such as heart failure or leg edema (fluid retention) high blood pressure kidney disease liver disease stomach bleeding or ulcers an unusual or allergic reaction to ibuprofen, aspirin, other NSAIDS, other medicines, foods, dyes, or preservatives or trying to get breast-feeding What should I watch for while using this medicine? Tell your doctor or healthcare professional if your symptoms do not start to get better or if they get worse. This medicine does not prevent heart attack or stroke. In fact, this medicine may increase the chance of a heart attack or stroke. The chance may increase with longer use of this medicine and in people who have heart disease. If you take aspirin to prevent heart attack or stroke, talk with your doctor or health client care representative. Do not take other medicines that contain aspirin, ibuprofen, or naproxen with this medicine. Side effects such as stomach upset, nausea, or ulcers may be more likely to occur. Many medicines available without a prescription should not be taken with this medicine. This medicine can cause ulcers and bleeding in the stomach and intestines at any time during treatment. Ulcers and bleeding can happen without warning symptoms and can cause . To reduce your risk, do not smoke cigarettes or drink alcohol while you are taking this medicine. You may get drowsy or dizzy. Do not drive, use machinery, or do anything that needs mental alertness until you know how this medicine affects you. Do not stand or sit up quickly, especially if you are an older patient. This reduces the risk of dizzy or fainting spells. This medicine can cause you to bleed more easily. Try to avoid damage to your teeth and gums when you brush or floss your teeth. You have been given the following additional information: Fall, Mechanical Contusion, Upper Extremity Fracture, Wrist [General] Splint Care, Fiberglass Ondansetron Oral disintegrating tablet Tramadol Hydrochloride Oral tablet Acetaminophen Oral tablet Ibuprofen Oral tablet (Electronically signed by Danny Fried DO 11/22/2016 22:46)
--- NOTE | 2016-11-22 22:46 | ED MAR SUMMARY ---
..... Medication Administration Record [facility] [address] [place] [address] Patient: MCKENZIE TEMPLE Visit ID: [id number] 51y, F Weight: 94.8 kg Height/Length: 64 in BMI: 35.9 ALLERGIES: Oxycodone, Codeine Given 17:12 11/22/2016 Ramsey Temple R.N. Medication Administered: DILAUDID [IM] (HYDROMORPHONE HCL PF), Dose: 2 mg IM. Medication Ordered: Dilaudid IM 2 mg (HIGH ALERT MEDICATION, NOW). Given 17:12 11/22/2016 Ramsey Temple RCisco Medication Administered: PHENERGAN [IM] (PROMETHAZINE HCL), Dose: 25 mg IM. Medication Ordered: Phenergan IM 25 mg (HIGH ALERT MEDICATION, NOW).
== END 2016-11-22 18:25 | disposition home or self-care (01) ==
LOC: ED SRH 16:48
DX: S52.501A Unspecified fracture of the lower end of right radius, initial encounter for closed fracture (principal); S40.011A Contusion of right shoulder, initial encounter; V80.010A Animal-rider injured by fall from or being thrown from horse in noncollision accident, initial encounter; Y93.52 Activity, horseback riding; Y92.009 Unspecified place in unspecified non-institutional (private) residence as the place of occurrence of the external cause; Y99.8 Other external cause status; E11.9 Type 2 diabetes mellitus without complications; Z79.84 Long term (current) use of oral hypoglycemic drugs; Z88.5 Allergy status to narcotic agent